=== PATIENT | female | born 1965 | race African-American/Black ===

== ENCOUNTER → 2018-12-13 | Outpatient (CLI) | payer BC ==
--- NOTE | 2018-12-13 12:48 | WOMENS IMAGING REPORT ---
EXAM DESCRIPTION: BILAT SCREENING MAMMO W/CAD COMPLETED DATE/TIME: 12/13/2018 10:30 am REASON FOR STUDY: Z12.31 ROUTINE BILATERAL SCREENING Z12.31 ENCNTR SCREEN MAMMOGRAM FOR MALIGNANT N EOPLASM OF HALIE COMPARISON: None. EXAM PARAMETERS: Standard craniocaudal and mediolateral oblique views of each breast recorded using digital acquisition. Read with the assistance of CAD. .[facility] [employer] Maintenance Version 9.2 LIMITATIONS: None. FINDINGS: No suspicious masses, suspicious calcifications or architectural distortion. No areas of s uspicion. IMPRESSION: ASSESSMENT: Negative MAMMOGRAM. BIRADS 1 BREAST DENSITY: b. There are scattered areas of fibroglandular density. BIRAD: 1 NEGATIVE RECOMMENDATION: ROUTINE SCREENING COMMENT: The patient has been notified of the results by letter per MQSA requirements. Additional no tification policies are in place for contacting patient with suspicious or incomplete findings. Quality ID #[id number]: The [employer] recommends an annual screening mammogram for women aged 40 years or over. This facility utilizes a reminder system to ensure that all patients receive reminder letters, and/or direct phone calls for appointments. This includes reminders for routine scr eening mammograms, diagnostic mammograms, or other Breast Imaging Interventions when appropriate. Th is patient will be placed in the appropriate reminder system. TECHNICAL DOCUMENTATION: FINDING NUMBER: (1) ASSESSMENT: (1) JOB ID: [id number] [employer]- All Rights Reserved Reading location - IP/workstation name: [email or web address]
== END ==
LOC: WI 10:08
PROVIDERS: ATTEND Family Medicine Geriatric Medicine
DX: Z12.31 Encounter for screening mammogram for malignant neoplasm of breast (principal)
CPT/HCPCS: 77067

== ENCOUNTER → 2018-12-15 | Outpatient (CLI) | payer BC ==
--- NOTE | 2018-12-15 13:18 | RADIOLOGY REPORT (SQ) ---
EXAM DESCRIPTION: U/S THYROID/SFT TISS HD NECK COMPLETED DATE/TIME: 12/15/2018 11:43 am REASON FOR STUDY: E04.1 NONTOXIC SINGLE THYROID NODULE E04.1 NONTOXIC SINGLE THYROID NODULE COMPARISON: None. TECHNIQUE: Dynamic and static austin-scale images acquired of the thyroid gland. Selected additional c olor/power Doppler images recorded. All images stored to PACS. LIMITATIONS: None. FINDINGS: RIGHT LOBE: Normal size, 4.8 x 2.9 x 2.5 cm. Homogeneous echotexture. There are several small hypoechoic lesions in the right lobe. The largest measures 8 mm. LEFT LOBE: Surgically absent ISTHMUS: 7.1 mm. Homogeneous echotexture. No cystic or solid masses. OTHER: No other significant finding. IMPRESSION: There are several small complex hypoechoic lesions in the right lobe as described. Foll ow-up as clinically indicated. TECHNICAL DOCUMENTATION: JOB ID: [id number] [employer]- All Rights Reserved Reading location - IP/workstation name: [email or web address]
== END ==
LOC: RAD 10:48
PROVIDERS: ATTEND Family Medicine Geriatric Medicine
DX: E04.1 Nontoxic single thyroid nodule (principal)
CPT/HCPCS: 76536

== ENCOUNTER 2020-03-16 20:02 | Emergency (ER) | payer BC ==
[2020-03-16] MEDS ORDERED: DIPHENHYDRAMINE HCL 50 MG/ML VIAL IV ONE (21:20)
[2020-03-16] MEDS ORDERED: FAMOTIDINE INJ/PF 20 MG/2 ML SDV IV ONE (21:20)
[2020-03-16] MEDS ORDERED: METHYLPREDNISOLONE INJ 125 MG/2 ML SDV IV ONE (21:20)
--- NOTE | 2020-03-16 21:24 | ER Document Report ---
ED Medical Screen (RME) - General Chief Complaint: Lip Swelling Stated Complaint: LIP SWELLING/POSSIBLE ALLERGIC REACTION Time Seen by Provider: 03/16/20 21:18 Primary Care Provider: NICOLE MORENO MD [Primary Care Provider] - Follow up as needed Mode of Arrival: Ambulatory Information source: Patient Notes: 55-year-old female presented to ED for swelling to her upper lip. She states on February 28 she went for her multiple sclerosis and for occlusion ofOcrevus and she was perfectly fine before going. She states about 2 days later she was very feverish with a fever of 101. She states she took Tylenol and the fever came down. She states from the until now she has had a cough off and on but it was not constant it was not barky it was just an off-and-on dry cough. She stated that she had a headache on and off since the also then she went to the walk-in clinic on March 08 and had flu strep COVID run and they were all negative. She states on the Tuesday the fourth she started with nausea vomiting and diarrhea so she went back to the urgent care she had a CBC other blood work and a stool culture done and was told to come back on Tuesday. She states they also started her on Zofran and Cipro. 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 She states this morning she woke up and her top lip was swollen and as the days progressed it is seems like it is gotten bigger. She states she called her sister who is a nurse and they told her that since she is on lisinopril she really needed to come to the emergency room right away. Patient is alert oriented respirations regular nonlabored speaking in full sentences but she is concerned with her new medications and the fact she is on lisinopril with a swollen lip. I have spoken to the charge nurse and let her know that this patient needs the next available bed. I have greeted and performed a rapid initial assessment of this patient. A comprehensive ED assessment and evaluation of the patient, analysis of test results and completion of medical decision making process will be conducted by an additional ED providers. TRAVEL OUTSIDE OF THE [place] IN LAST 30 DAYS: No - Related Data Allergies/Adverse Reactions: amoxicillin Allergy (Verified 03/06/19 09:33) Sulfa (Sulfonamide Antibiotics) Allergy (Verified 03/06/19 09:33) sulfamethoxazole [From Bactrim] Allergy (Verified 03/06/19 09:33) trimethoprim [From Bactrim] Allergy (Verified 03/06/19 09:33) Past Medical History - Past Medical History Cardiac Medical History: Reports: Hx Hypercholesterolemia, Hx Hypertension Endocrine Medical History: Reports: Hx Diabetes Mellitus Type 2, Hx Hypothyroidism Renal/ Medical History: Denies: Hx Peritoneal Dialysis Past Surgical History: Reports: Hx Appendectomy, Hx Hysterectomy, Hx Orthopedic Surgery, Hx Thyroid Surgery Physical Exam - Vital signs Vitals: Temp Pulse Resp BP Pulse Ox 98.4 F 63 20 174/66 H 98 03/16/20 20:27 03/16/20 20:27 03/16/20 20:27 03/16/20 20:27 03/16/20 20:27 Course - Vital Signs Vital signs: Temp Pulse Resp BP Pulse Ox 98.4 F 63 20 174/66 H 98 03/16/20 20:27 03/16/20 20:27 03/16/20 20:27 03/16/20 20:27 03/16/20 20:27 Doctor's Discharge - Discharge Referrals: NICOLE MORENO MD [Primary Care Provider] - Follow up as needed
[2020-03-16 22:58] LABS: ABSOLUTE BASOPHILS # (AUTO) 0.1 10^3/uL (0.0-0.2); ABSOLUTE EOSINOPHILS # (AUTO) 0.3 10^3/uL (0.0-0.6); ABSOLUTE LYMPHOCYTES (AUTO) 3.3 10^3/uL (0.5-4.7); ABSOLUTE MONOCYTES (AUTO) 0.7 10^3/uL (0.1-1.4); ABSOLUTE NEUT (AUTO) 4.9 10^3/uL (1.7-8.2); BASOPHILS % (AUTO) 1.4 % (0-2); EOSINOPHILS % (AUTO) 3.2 % (0-6); HEMATOCRIT 33.2 % (36.0-47.0); HEMOGLOBIN 10.9 g/dL (12.0-15.5); LYMPHOCYTES % (AUTO) 35.5 % (13-45); MEAN CORPUSCULAR HEMOGLOBIN 28.2 pg (27.0-33.4); MEAN CORPUSCULAR HGB CONC 32.9 g/dL (32.0-36.0); MEAN CORPUSCULAR VOLUME 86 fl (80-97); MONOCYTES % (AUTO) 7.5 % (3-13); PLATELET COUNT 528 10^3/uL (150-450); RED BLOOD COUNT 3.87 10^6/uL (3.72-5.28); RED CELL DISTRIBUTION WIDTH 14.2 % (11.5-14.0); SEGMENTED NEUTROPHILS % (AUTO) 52.4 % (42-78); TOTAL CELLS COUNTED % (AUTO) 100 %; WHITE BLOOD COUNT 9.3 10^3/uL (4.0-10.5)
[2020-03-16 23:09] LABS: ALBUMIN 4.3 g/dL (3.5-5.0); ALKALINE PHOSPHATASE 92 U/L (38-126); ANION GAP 13 (5-19); ASPARTATE AMINO TRANSFERASE 17 U/L (14-36); BILIRUBIN,DIRECT 0.3 mg/dL (0.0-0.4); BILIRUBIN,TOTAL 0.3 mg/dL (0.2-1.3); BLOOD UREA NITROGEN 34 mg/dL (7-20); CALCIUM 9.7 mg/dL (8.4-10.2); CARBON DIOXIDE 24 mmol/L (22-30); CHLORIDE 104 mmol/L (98-107); GLUCOSE 128 mg/dL (75-110); POTASSIUM 4.8 mmol/L (3.6-5.0); TOTAL PROTEIN 7.6 g/dL (6.3-8.2)
--- NOTE | 2020-03-17 01:33 | ER Document Report ---
ED General - General Chief Complaint: Lip Swelling Stated Complaint: LIP SWELLING/POSSIBLE ALLERGIC REACTION Time Seen by Provider: 03/16/20 21:18 Primary Care Provider: NICOLE MORENO MD [Primary Care Provider] - Follow up as needed Mode of Arrival: Ambulatory Information source: Patient Notes: Patient is a 55-year-old female with a history of HTN and MS who presents for swelling to her upper lip that began earlier this morning. On February 28, patient received an infusion of Ocrevus as scheduled for her MS. Two days later she became febrile and contacted her neurologist as she was concerned the fevers were related to her infusions. She was told it was unlikely since it was her first infusion. She tried to follow up with her PCP but could not get an appoi ntment. She went to a walk-in clinic on March 07 as her symptoms had worsened and she now had MUNGUIA, nausea, diarrhea, and cough in addition to fevers. At that time, a chest x-ray, flu swab, and COVID-19 swab were done and were all negative. She returned to the walk-in clinic on March 14 as she was still unwell and a stool culture was ordered and patient was sent home with a prescription for Cipro and Zofran. This morning, she woke up with her top lip swollen and she reports that it worsened throughout the day. She told her sister, who is a nurse, about her lip and her sister recommended that she immediately come to the ER as she takes lisinopril for her hypertension. Patient denies shortness of breath, and difficulty swallowing. She reports that her symptoms of fever, diarrhea, vomiting and cough has resolved and she only reports intermittent nausea and MUNGUIA. TRAVEL OUTSIDE OF THE [place] IN LAST 30 DAYS: No - Related Data Allergies/Adverse Reactions: amoxicillin Allergy (Verified 03/06/19 09:33) Sulfa (Sulfonamide Antibiotics) Allergy (Verified 03/06/19 09:33) sulfamethoxazole [From Bactrim] Allergy (Verified 03/06/19 09:33) trimethoprim [From Bactrim] Allergy (Verified 03/06/19 09:33) Past Medical History - General Information source: Patient - Social History Smoking Status: Never Smoker Chew tobacco use (# tins/day): No Frequency of alcohol use: None Drug Abuse: None Family History: Reviewed & Not Pertinent - Past Medical History Cardiac Medical History: Reports: Hx Hypercholesterolemia, Hx Hypertension Endocrine Medical History: Reports: Hx Diabetes Mellitus Type 2, Hx Hypothyroidism Renal/ Medical History: Denies: Hx Peritoneal Dialysis Past Surgical History: Reports: Hx Appendectomy, Hx Hysterectomy, Hx Orthopedic Surgery, Hx Thyroid Surgery Review of Systems - Review of Systems Constitutional: No symptoms reported EENT: See HPI Cardiovascular: No symptoms reported Respiratory: No symptoms reported Gastrointestinal: See HPI Genitourinary: No symptoms reported Female Genitourinary: No symptoms reported Musculoskeletal: No symptoms reported Skin: No symptoms reported Hematologic/Lymphatic: No symptoms reported Neurological/Psychological: See HPI Physical Exam - Vital signs Vitals: Temp Pulse Resp BP Pulse Ox 98.4 F 63 20 174/66 H 98 03/16/20 20:27 03/16/20 20:27 03/16/20 20:27 03/16/20 20:27 03/16/20 20:27 - Notes Notes: PHYSICAL EXAMINATION: GENERAL: Well-appearing, well-nourished and in no acute distress. HEAD: Atraumatic, normocephalic. EYES: Pupils equal round and reactive to light, extraocular movements intact, sclera anicteric, conjunctiva are normal. ENT: Swelling noted to her top lip, right greater than left. No swelling to her tongue, palate, or posterior pharynx. Nares patent, oropharynx clear without exudates. Moist mucous membranes. NECK: Normal range of motion, supple without lymphadenopathy LUNGS: Breath sounds clear to auscultation bilaterally and equal. No wheezes rales or rhonchi. HEART: Regular rate and rhythm without murmurs ABDOMEN: Soft, nontender, normoactive bowel sounds. No guarding, no rebound. No masses appreciated. EXTREMITIES: Normal range of motion, no pitting or edema. No cyanosis. NEUROLOGICAL: No focal neurological deficits. Moves all extremities spontaneously and on command. PSYCH: Normal mood, normal affect. SKIN: Warm, Dry, normal turgor, no rashes or lesions noted. Course - Re-evaluation Re-evalutation: Patient is a 55-year-old female who presents for swelling to her upper lip that began earlier this morning. Patient currently takes lisinopril for her hypertension. On exam, swelling is noted to her top lip, right greater than left but there is no swelling present on her tongue, palate or posterior pharynx. Patient's respirations are regular and non-labored with clear speech. I have a concern for angioedema due to lisinopril. I have instructed the patient to stop taking lisinopril immediately and follow up with her PCP to be started on a new antihypertensive. Patient was also made aware of her normocytic anemia and mild elevation in kidney function. I advised her to follow up with her PCP to have these labs rechecked. Patient will be discharged home. - Vital Signs Vital signs: Temp Pulse Resp BP Pulse Ox 98.7 F 63 18 160/72 H 97 03/17/20 02:01 03/16/20 20:27 03/17/20 02:01 03/17/20 02:01 03/17/20 02:01 - Laboratory Result Diagrams: 03/16/20 22:50 03/16/20 22:50 Laboratory results interpreted by me: 03/16/20 03/16/20 22:50 22:50 Hgb 10.9 L Hct 33.2 L RDW 14.2 H Plt Count 528 H BUN 34 H Creatinine 1.58 H Est GFR ( Amer) 41 L Est GFR (MDRD) Non-Af 34 L Glucose 128 H Discharge - Discharge Clinical Impression: Lip swelling Angio-edema Qualifiers: Encounter type: initial encounter Qualified Code(s): T78.3XXA - Angioneurotic edema, initial encounter Condition: Stable Disposition: HOME, SELF-CARE Additional Instructions: Stop taking lisinopril immediately. Follow up with your primary care provider to start a new medication for your hypertension. Add lisinopril to your list of allergies. Angioedema Angioedema is an allergic swelling of the soft tissues of the body. The lips and mouth are most commonly involved. Medicication allergy is a common cause, especially PATRICIA inhibitor medicine (used for blood pressure control). Food, even something you've eaten frequently, can cause angioedema. In many cases it's not obvious what caused the swelling. Acute treatment may include adrenalin and antihistamines. If the cause is known, you must avoid this food or medicine in the future. If angioedema affects your air passages, it can be life-threatening. Return at once if you develop shortness of breath, faintness, severe pain, inability to swallow, or if swelling worsens.swelling worsens. Referrals: NICOLE MORENO MD [Primary Care Provider] - Follow up as needed
[2020-03-17 02:14] VITALS: BP 160/72
== END 2020-03-17 02:15 | disposition home or self-care (01) ==
LOC: ER 20:02
DX: T78.3XXA Angioneurotic edema, initial encounter (principal); X58.XXXA Exposure to other specified factors, initial encounter; R11.0 Nausea; R51 Headache; E11.9 Type 2 diabetes mellitus without complications; G35 Multiple sclerosis; I10 Essential (primary) hypertension; Z79.899 Other long term (current) drug therapy; Z88.0 Allergy status to penicillin; Z88.2 Allergy status to sulfonamides; Z88.1 Allergy status to other antibiotic agents
CPT/HCPCS: 99284; 96374; 96375; 36415; 85025; 80053; J1200; J2930; S0028

== ENCOUNTER 2020-07-21 06:46 | Day surgery (SDC) | payer BC, OTHER ==
[~2020-07-21 06:46] MED LIST: KETOROLAC TROMETHAMINE 0.45% 4 DROP/0.4 ML DROPERETTE OD PRN
[2020-07-21] MEDS ORDERED: MIDAZOLAM 2 MG/2 ML INJ ONE (06:51)
[2020-07-21] MEDS ORDERED: FENTANYL CITRATE INJ/PF 100 MCG/2 ML AMPUL ONE (06:51)
[2020-07-21] MEDS: BESIFLOXACIN HCL 0.6% OPH SUSP 5 ML BOTTLE OD PRN ×4 (07:04→07:53)
[2020-07-21] MEDS: TROPICAMIDE 1% OPH SOLN 15 ML OD PRN ×3 (07:04→07:25)
[2020-07-21] MEDS: CYCLOPENTOLATE 0.2%/PHENYLEPHRINE 1% OPH SOLN 2 ML OD PRN ×3 (07:04→07:25)
[2020-07-21] MEDS: TETRACAINE HCL 0.5% OPH SOLN 4 ML OD PRN ×3 (07:04→07:35)
[2020-07-21] MEDS ORDERED: EPINEPHRINE INJ/PF 1 MG/1 ML AMPULE ONE (07:10)
[2020-07-21] MEDS ORDERED: MOXIFLOXACIN 1 MG/ML-BSS OPH SOLN 1 ML VIAL ONE (07:11)
[2020-07-21] MEDS ORDERED: LIDOCAINE 1%/PHENYLEPHRINE 1.5% 1 ML VIAL ONE (07:12)
[2020-07-21] MEDS ORDERED: CHONDR SU A NA/HYALUR INTRAOC KIT (SURGICARE) ONE (07:13)
[2020-07-21] MEDS: MOXIFLOXACIN 1 MG/ML-BSS OPH SOLN 1 ML VIAL ONE ×2 (07:43→07:51)
[2020-07-21] MEDS: PREDNISOLONE ACETATE 1% OPH SUSP 5 ML OD PRN ×2 (07:44→07:53)
[2020-07-21] MEDS: DORZOLAMIDE HCL 2%/TIMOLOL MALEAT 0.5% OPH SOLN 10 ML OD PRN ×2 (07:44→07:53)
--- NOTE | 2020-07-21 08:54 | Operative Report ---
Operative Report-[facility] Operative Report: DATE OF SURGERY: July 21, 2020 PREOPERATIVE DIAGNOSIS: NUCLEAR CATARACT, RIGHT EYE. POSTOPERATIVE DIAGNOSIS: NUCLEAR CATARACT, RIGHT EYE. PROCEDURE PERFORMED: PHACOEMULSIFICATION WITH POSTERIOR CHAMBER INTRAOCULAR LENS IMPLANT, RIGHT EYE. SURGEON: Toby Rodriguez DO MEDICATIONS AND ANESTHESIA: Versed: IV Versed Tetracaine drops: 1 to 2 drops given as needed COMPLICATION: None INDICATIONS FOR SURGERY: Medical necessity: Best corrected visual acuity worse than 20/40 secondary to cataracts with impairment of ability to carry out needs or desired activities, blurred vision, visual distortion, reduced contrast sensitivity and/or glare with association functional impairment and supporting documentation/testing, and cataracts causing symptomatic impairment of visual functions not corrected with tolerable changes in glasses or contact lenses interfering with activities of daily life. PROCEDURE: Consent: The risks, benefits and alternatives of this procedures was discussed with the patient. The patient read and signed the consent forms, was identified and was seated in the exam chair. IOL: MX 60 E 20.5 IOL Diopters: Phacoemulsification with posterior chamber intraocular lens implant: The face was prepped with 5% povidone iodine solution, and a few drops of 5% povidone iodine solution was instilled into the inferior fornix. A non-fenestrated drape was placed over the eye and the lids were parted with the speculum. A paracentesis was made with a 15 degree blade, and 1% lidocaine MPF followed by viscoelastic was injected into the anterior chamber. A 2.4 mm metal micro- keratome was used to create a temporal clear corneal incision. A circular anterior capsulorrhexis was created, followed by hydro-dissection and hydro- delineation. The phacoemulsification hand piece was inserted and the nucleus was removed with the Phaco chop technique. The irrigation-aspiration hand piece was used to remove the residual cortex, and vacuum the posterior capsule. The capsular bag was inflated and viscoelastic and the above-mentioned IOL was injected into the eye with care to insert both leaning and trailing haptics in the capsular bag. The irrigation/aspiration hand piece was reinserted to remove residual viscoelastic from the capsular bag and anterior chamber. The corneal incision was hydrated, and anterior chamber was inflated with sterile BSS via the paracentesis site, and found to be watertight. Postop medication: 1 drop of prednisolone into operative by followed by 1 drop of Cosopt into operative eye followed by 1 drop of Besivance intraoperative by other:
== END 2020-07-21 08:28 | disposition home or self-care (01) ==
LOC: SC 06:46
PROVIDERS: ATTEND Ophthalmology
DX: H25.11 Age-related nuclear cataract, right eye (principal); E11.36 Type 2 diabetes mellitus with diabetic cataract; I10 Essential (primary) hypertension; E78.00 Pure hypercholesterolemia, unspecified; G47.30 Sleep apnea, unspecified; Z79.82 Long term (current) use of aspirin; Z79.84 Long term (current) use of oral hypoglycemic drugs; Z87.891 Personal history of nicotine dependence; G47.33 Obstructive sleep apnea (adult) (pediatric); G35 Multiple sclerosis
CPT/HCPCS: 66984; 82962; V2632; J2250; J3490 ×3; J0171; J3010; 142

== ENCOUNTER 2020-08-06 08:22 | Day surgery (SDC) | payer BC, OTHER ==
[~2020-08-06 08:22] MED LIST changes: -KETOROLAC TROMETHAMINE 0.45% 4 DROP/0.4 ML DROPERETTE OD PRN; +KETOROLAC TROMETHAMINE 0.45% 4 DROP/0.4 ML DROPERETTE OS PRN; +MIDAZOLAM 2 MG/2 ML INJ ONE; +MOXIFLOXACIN 1 MG/ML-BSS OPH SOLN 1 ML VIAL ONE
[2020-08-06] MEDS: TROPICAMIDE 1% OPH SOLN 15 ML OS PRN ×3 (09:14→09:32)
[2020-08-06] MEDS: TETRACAINE HCL 0.5% OPH SOLN 4 ML OS PRN ×3 (09:14→09:48)
[2020-08-06] MEDS: CYCLOPENTOLATE 0.2%/PHENYLEPHRINE 1% OPH SOLN 2 ML OS PRN ×3 (09:14→09:32)
[2020-08-06] MEDS: BESIFLOXACIN HCL 0.6% OPH SUSP 5 ML BOTTLE OS PRN ×4 (09:15→10:09)
[2020-08-06] MEDS: CHONDR SU A NA/HYALUR INTRAOC KIT (SURGICARE) ONE ×2 (10:00)
[2020-08-06] MEDS: EPINEPHRINE INJ/PF 1 MG/1 ML AMPULE ONE ×2 (10:00)
[2020-08-06] MEDS: LIDOCAINE 1%/PHENYLEPHRINE 1.5% 1 ML VIAL ONE ×2 (10:00)
[2020-08-06] MEDS: DORZOLAMIDE HCL 2%/TIMOLOL MALEAT 0.5% OPH SOLN 10 ML OS PRN ×2 (10:09)
[2020-08-06] MEDS: PREDNISOLONE ACETATE 1% OPH SUSP 5 ML OS PRN ×2 (10:09)
--- NOTE | 2020-08-06 15:47 | Operative Report ---
Operative Report-[facility] Operative Report: DATE OF SURGERY: August 06, 2020 PREOPERATIVE DIAGNOSIS: NUCLEAR CATARACT, LEFT EYE. POSTOPERATIVE DIAGNOSIS: NUCLEAR CATARACT, LEFT EYE. PROCEDURE PERFORMED: PHACOEMULSIFICATION WITH POSTERIOR CHAMBER INTRAOCULAR LENS IMPLANT, LEFT EYE. SURGEON: Toby Rodriguez DO MEDICATIONS AND ANESTHESIA: Versed: IV Versed Tetracaine drops: 1 to 2 drops given as needed COMPLICATION: None INDICATIONS FOR SURGERY: Medical necessity: Best corrected visual acuity worse than 20/40 secondary to cataracts with impairment of ability to carry out needs or desired activities, blurred vision, visual distortion, reduced contrast sensitivity and/or glare with association functional impairment and supporting documentation/testing, and cataracts causing symptomatic impairment of visual functions not corrected with tolerable changes in glasses or contact lenses interfering with activities of daily life. PROCEDURE: Consent: The risks, benefits and alternatives of this procedures was discussed with the patient. The patient read and signed the consent forms, was identified and was seated in the exam chair. IOL: MX 60 E 19.0 IOL Diopters: Phacoemulsification with posterior chamber intraocular lens implant: The face was prepped with 5% povidone iodine solution, and a few drops of 5% povidone iodine solution was instilled into the inferior fornix. A non-fenestrated drape was placed over the eye and the lids were parted with the speculum. A paracentesis was made with a 15 degree blade, and 1% lidocaine MPF followed by viscoelastic was injected into the anterior chamber. A 2.4 mm metal micro- keratome was used to create a temporal clear corneal incision. A circular anterior capsulorrhexis was created, followed by hydro-dissection and hydro- delineation. The phacoemulsification hand piece was inserted and the nucleus was removed with the Phaco chop technique. The irrigation-aspiration hand piece was used to remove the residual cortex, and vacuum the posterior capsule. The capsular bag was inflated and viscoelastic and the above-mentioned IOL was injected into the eye with care to insert both leaning and trailing haptics in the capsular bag. The irrigation/aspiration hand piece was reinserted to remove residual viscoelastic from the capsular bag and anterior chamber. The corneal incision was hydrated, and anterior chamber was inflated with sterile BSS via the paracentesis site, and found to be watertight. Postop medication:1 drop of prednisolone into operative by followed by 1 drop of Cosopt into operative eye followed by 1 drop of Besivance intraoperative by Other:
== END 2020-08-06 10:41 | disposition home or self-care (01) ==
LOC: SC 08:22
PROVIDERS: ATTEND Ophthalmology
DX: H25.12 Age-related nuclear cataract, left eye (principal); Z98.41 Cataract extraction status, right eye; E11.36 Type 2 diabetes mellitus with diabetic cataract; I10 Essential (primary) hypertension; E78.00 Pure hypercholesterolemia, unspecified; Z79.82 Long term (current) use of aspirin; Z79.84 Long term (current) use of oral hypoglycemic drugs; G47.33 Obstructive sleep apnea (adult) (pediatric); G35 Multiple sclerosis; Z87.891 Personal history of nicotine dependence
CPT/HCPCS: 66984; 82962; V2632; J2250; J3490 ×3; J0171